=== PATIENT | male | born 1975 | race Caucasian/White ===

== ENCOUNTER 2018-11-26 11:13 | Inpatient (IN) | payer BC, OTHER ==
[~2018-11-26] VITALS: Ht 180.3 cm; Wt 104.9 kg
[2018-11-26] MEDS ORDERED: ADENOSINE 6 MG/2 ML INJ IV ONE ×2 (11:35→11:45)
[2018-11-26] MEDS ORDERED: DILTIAZEM HCL 25 MG/5 ML VIAL IV ONE ×2 (11:39→11:45)
[2018-11-26] MEDS ORDERED: SODIUM CHLORIDE 0.9% 1,000 ML IV ONE (11:45)
[2018-11-26 11:53] LABS: Basophils # (auto) 0.2 uL; Basophils % (auto) 2.4 % (0.0-2.0); Eosinophils # (auto) 0.3 uL; Eosinophils % (auto) 3.9 % (0.0-7.0); Hematocrit 46.9 % (41.0-53.0); Hemoglobin 16.3 g/dL (13.5-17.5); Lymphocytes # (auto) 1.9 uL; Lymphocytes % (auto) 26.7 % (10.0-50.0); Mean Corpuscular Hemoglobin 31.7 pg (28.0-32.0); Mean Corpuscular Hgb Conc. 34.8 g/dL (32.0-36.0); Mean Corpuscular Volume 91.2 fL (80.0-100.0); Monocytes # (auto) 0.6 uL; Monocytes % (auto) 8.2 % (0.0-12.0); Neutrophils # (auto) 4.1 uL; Neutrophils % (auto) 58.8 % (37.0-80.0); Nucleated Red Blood Cells % 0.1 %; Platelet Count (auto) 256 10^3/uL (140-450); Red Blood Cells 5.14 10^6/uL (4.5-5.90); Red Cell Distribution Width 13.1 % (11.8-14.3)
[2018-11-26] MEDS ORDERED: ASPirin 81 mg TAB PO ONE (12:00)
[2018-11-26 12:07] LABS: INR < 0.93 (0.9-1.15); Partial Thromboplastin Time 27.5 sec (23.64-32.05)
[2018-11-26 12:08] LABS: Albumin 3.8 g/dL (3.4-5.0); Anion Gap 8 (5-15); Blood Urea Nitrogen 19 mg/dL (7-18); Calcium 8.7 mg/dL (8.5-10.1); Carbon Dioxide 26 mmol/L (21-32); Chloride 108 mmol/L (98-107); Glucose 115 mg/dL (74-106); Magnesium 2.5 mg/dL (1.6-2.6); Potassium 4.4 mmol/L (3.5-5.1); Sodium 142 mmol/L (136-145)
[2018-11-26 12:16] LABS: Alanine Aminotransferase 49 U/L (16-61); Alkaline Phosphatase 69 U/L (45-117); Aspartate Aminotransferase 24 U/L (15-37); BUN/Creatinine Ratio 16.4; Bilirubin, Total 1.5 mg/dL (0.2-1.0); GFR African American 88 mL/min; GFR Non-African American 72 mL/min; Total Protein 7.5 g/dL (6.4-8.2)
[2018-11-26] MEDS ORDERED: LACTULOSE 20Gm/30ML SOLN PO PRN (13:00)
[2018-11-26] MEDS: SODIUM CHLORIDE 0.9% 1,000 ML IV SCH (13:00)
[2018-11-26] MEDS ORDERED: PROMETHAZINE HCL 25 MG/ML 1ML IV PRN (13:00)
[2018-11-26] MEDS ORDERED: NITROGLYCERIN 0.4 MG SL TAB SL PRN (13:00)
[2018-11-26] MEDS ORDERED: MORPHINE SULFATE 4 MG/ML SYR/VIAL IV PRN (13:00)
[2018-11-26] MEDS ORDERED: MORPHINE SULF INJ 2 MG/ML SYRINGE 1ML IV PRN (13:00)
[2018-11-26] MEDS ORDERED: TEMAZEPAM 15 MG CAP PO PRN (13:00)
[2018-11-26] MEDS ORDERED: ACETAMINOPHEN 500 MG TAB PO PRN (13:00)
[2018-11-26] MEDS ORDERED: HYDROcodone-ACET 5/325MG TAB PO PRN (13:00)
[2018-11-26] MEDS ORDERED: ENOXAPARIN SOD 40 MG/0.4 ML SYRINGE SC ONE (13:45)
[2018-11-26] MEDS ORDERED: PANTOPRAZOLE 40 MG TAB PO ONE (13:45)
[2018-11-26] MEDS ORDERED: LIDOCAINE 2%HCL (LOCAL ANESTH.) INJ 20ML MDV ONE (14:30)
[2018-11-26] MEDS ORDERED: fentaNYL CITRATE 100 MCG/2 ML VL ONE (14:52)
[2018-11-26] MEDS ORDERED: MIDAZOLAM HCL 1MG/1ML-2 ML VIAL ONE (14:53)
[2018-11-26] MEDS ORDERED: ISOPROTERENOL HCL INJECTION 1 MG in D5W 5% 250 ML IV SCH (14:59)
[2018-11-26] MEDS ORDERED: HEPARIN SODIUM (PORCINE) 5000 UNITS/ML 1ML VIAL ONE (16:31)
[2018-11-26] MEDS ORDERED: HEPARIN DRIP/D5W 100UNITS/ML 250 ML IV ONE (16:31)
[2018-11-26 19:35] VITALS: BP 121/77
--- NOTE | 2018-11-26 19:35 | NUR ---
Telemetry admit from Recovery room Cath.lab. CHEYANNE SNOW admitted to Telemetry unit after SBAR received. Patient oriented to Alvina avelar RN, unit, room, bed, and unit policies regarding patient care and visiting hours. Patient now on continuous telemetry monitoring, tele box #18 and telemetry reading on arrival to unit is SR 68 ST elevation ,BBB. Patient placed on bedside oxygen, weighed by bedscale and encouraged to call if they need something. All questions and concerns addressed, patient verbalized understanding. Note:Came recovery from cath. lab. per bed awake alert oriented x 4, not in respiratory distress, right groin angioseal in-placed with slight oozing noted still from cath. lab as per report.Flat on bed x 4 hours more, patient is aware.
[2018-11-26 20:00] VITALS: BP 121/77
[2018-11-26] MEDS ORDERED: CARV6.25 PO (20:08)
[2018-11-26] MEDS: FLECAINIDE ACETATE 50 MG TAB PO SCH (21:41)
[2018-11-26] MEDS: METOPROLOL TARTRATE 25 MG TAB PO SCH ×2 (21:43→22:00)
[2018-11-26 22:00] VITALS: BP 112/71
--- NOTE | 2018-11-26 22:00 | NUR ---
Paged Dr. Waldrop for result of troponin of 1.12, awaiting reply.
--- NOTE | 2018-11-26 23:35 | NUR ---
Orlando Nicole responded and related troponin is 1.120, said its probably due the procedure ablation and to tell also to Dr. Waldrop.
[2018-11-27] MEDS: SODIUM CHLORIDE 0.9% 1,000 ML IV SCH (02:20)
[2018-11-27 05:00] VITALS: BP 120/69
[2018-11-27 06:36] LABS: Basophils # (auto) 0.1 uL; Basophils % (auto) 1.2 % (0.0-2.0); Eosinophils # (auto) 0.2 uL; Eosinophils % (auto) 2.8 % (0.0-7.0); Hemoglobin 13.9 g/dL (13.5-17.5); Lymphocytes # (auto) 1.7 uL; Lymphocytes % (auto) 29.9 % (10.0-50.0); Mean Corpuscular Hemoglobin 31.8 pg (28.0-32.0); Mean Corpuscular Hgb Conc. 34.8 g/dL (32.0-36.0); Mean Corpuscular Volume 91.3 fL (80.0-100.0); Monocytes # (auto) 0.6 uL; Monocytes % (auto) 9.8 % (0.0-12.0); Neutrophils # (auto) 3.2 uL; Neutrophils % (auto) 56.3 % (37.0-80.0); Nucleated Red Blood Cells % 0.2 %; Platelet Count (auto) 196 10^3/uL (140-450); Red Blood Cells 4.38 10^6/uL (4.5-5.90); Red Cell Distribution Width 12.9 % (11.8-14.3); White Blood Cell 5.7 10^3/uL (4.4-10.8)
--- NOTE | 2018-11-27 06:40 | NUR ---
Paged Dr. Waldrop to relay the troponin result of 1.120 last night and 1.01 at around 0124, awaiting reply.
--- NOTE | 2018-11-27 06:50 | NUR ---
Report given to Leonor Harrison, patient is resting no discomfort the whole night, dressing in the right groin dry and intact.
[2018-11-27 07:07] LABS: Albumin 2.9 g/dL (3.4-5.0); BUN/Creatinine Ratio 18.7; Calcium 7.5 mg/dL (8.5-10.1); Potassium 3.9 mmol/L (3.5-5.1)
[2018-11-27 07:09] LABS: Bilirubin, Total 1.2 mg/dL (0.2-1.0); Total Protein 5.7 g/dL (6.4-8.2)
[2018-11-27 08:17] VITALS: BP 125/81
[2018-11-27 08:57] VITALS: BP 125/81
[2018-11-27] MEDS ORDERED: PANTOPRAZOLE 40 MG TAB PO SCH (10:00)
[2018-11-27] MEDS ORDERED: ENOXAPARIN SOD 40 MG/0.4 ML SYRINGE SC SCH (10:00)
[2018-11-27] MEDS ORDERED: ASPirin 81 mg TAB PO SCH (10:00)
[2018-11-27] MEDS: METOPROLOL TARTRATE 25 MG TAB PO SCH (10:23)
[2018-11-27] MEDS: FLECAINIDE ACETATE 50 MG TAB PO SCH (10:25)
[2018-11-27 11:59] VITALS: BP 125/81
[2018-11-27 13:24] VITALS: BP 110/70
--- NOTE | 2018-11-27 14:30 | NUR ---
PATIENT DISCHARGED HOME WITH FAMILY. ALL DISCHARGE PAPERWORK SIGNED. ALL DISCHARGE INSTRUCTIONS GIVEN. ALL IV ACCESS DISCONTINUED. TELEMETRY REMOVED AND RETURNED TO [facility]
== END 2018-11-27 14:30 | disposition home or self-care (01) | DRG 273 ==
LOC: ER 11:13 → TELE 11:14 → TELE-EAST 20:29
PROVIDERS: ADMIT Internal Medicine; ATTEND Internal Medicine
PROC: 02583ZZ Destruction of Conduction Mechanism, Percutaneous Approach (ICD-10-PCS; principal; 2018-11-26)
PROC: 02K83ZZ Map Conduction Mechanism, Percutaneous Approach (ICD-10-PCS; 2018-11-26)
PROC: 4A023FZ Measurement of Cardiac Rhythm, Percutaneous Approach (ICD-10-PCS; 2018-11-26)
PROC: 4A0234Z Measurement of Cardiac Electrical Activity, Percutaneous Approach (ICD-10-PCS; 2018-11-26)
DX: I47.1 Supraventricular tachycardia (principal); N17.0 Acute kidney failure with tubular necrosis; E44.0 Moderate protein-calorie malnutrition; E66.9 Obesity, unspecified; F17.210 Nicotine dependence, cigarettes, uncomplicated; I50.9 Heart failure, unspecified; N18.9 Chronic kidney disease, unspecified; Z83.3 Family history of diabetes mellitus; Z86.73 Personal history of transient ischemic attack (TIA), and cerebral infarction without residual deficits; Z68.32 Body mass index [BMI] 32.0-32.9, adult; Z79.899 Other long term (current) drug therapy; Z79.82 Long term (current) use of aspirin
CPT/HCPCS: 36415; 71045; 80053; 83735; 84443; 84484; 85025; 85379; 85610; 85652; 85730; 93005; 93306; 96361; 96374; G0378; J0153; J2250; J7060